=== PATIENT | male | born 1950 | race Caucasian/White ===

== ENCOUNTER 2016-09-19 13:51 | Inpatient (IN) | payer MEDICARE ==
[~2016-09-19] VITALS: Ht 182.9 cm; Wt 98.0 kg
[2016-09-20] MEDS ORDERED: FINA5TAB2 PO (09:21)
[2016-09-20] MEDS ORDERED: DOXY100C PO (09:21)
[2016-09-20] MEDS ORDERED: AVOD0.5C PO (09:21)
[2016-09-20] MEDS ORDERED: LORA1TAB12 PO (09:21)
[2016-09-20] MEDS ORDERED: DOXA1TAB43 PO (09:21)
[2016-09-20] MEDS ORDERED: PANT40TA3 PO (09:21)
[2016-10-09] MEDS ORDERED: INSULIN HUMAN REGULAR 1,000 UNITS/10 ML VIAL SQ PRN (06:00)
[2016-10-09] MEDS ORDERED: SODIUM CHLORID 0.9% 500 ML IV PRN (06:00)
[2016-10-09] MEDS ORDERED: VANCOMYCIN 1000 MG/NS 250 ML (for <70 kg) IV SCH ×2 (06:00)
[2016-10-09] MEDS ORDERED: METOPROLOL TARTRATE 25 MG TAB PO PRN (06:00)
[2016-10-09] MEDS ORDERED: POVIDONE IODINE 5% (ANTISEPSIS KIT) 4 APPLICATIONS EACH NARE PRN (06:00)
[2016-10-09] MEDS ORDERED: CHLORHEXIDINE GLUCONATE 2 % 1 PACK (2 CLOTHS) TOPICAL PRN (06:00)
[2016-10-09] MEDS ORDERED: ceFAZolin 2 GM PREMIX 50 ML IV SCH (06:00)
[2016-10-09] MEDS ORDERED: LACTATED RINGER'S 1000 ML IV PRN (06:00)
[2016-10-09] MEDS ORDERED: POVIDONE IODINE 7.5% SCRUB 118 ML BOTTLE TOPICAL SCH (06:00)
[2016-10-09] MEDS ORDERED: DEXAMETHASONE SOD PHOS 20 MG/5 ML VIAL IV SCH (06:15)
[2016-10-09 06:54] VITALS: BP 119/75; PULSE 72; RESP 20; TEMP 97.7; O2SAT 95
--- NOTE | 2016-10-09 06:57 | HHI.DCPOC ---
Discharge Care Plan Diagnosis: (1) Primary localized osteoarthrosis, lower leg (2) Status post total knee replacement, right Your Health Problems Are: Difficulty with ADL Goals to Promote Your Health * To prevent worsening of your condition and complications * To maintain your health at the optimal level Directions to Meet Your Goals Take your medications as prescribed Follow your dietary instruction Follow activity as directed Keep your appointments as scheduled Take your immunizations and boosters as scheduled If your symptoms worsen call your PCP, if no PCP go to Urgent Care Center or Emergency Room Smoking is Dangerous to Your Health. Avoid second hand smoke Call the 24-hour hour crisis hotline for domestic abuse at Ron Magallanes Oct 09, 2016 06:57
--- NOTE | 2016-10-09 06:58 | HHI.FF ---
Face to Face Verification Diagnosis: (1) Primary localized osteoarthrosis, lower leg (2) Status post total knee replacement, right Physical Therapy Gait training, Transfer training, bed to chair Knee: Total knee Right LE Weight Bearing: WB as tolerated Right LE Range of Motion: Active ROM Nursing Nursing: Francisco teaching, Dressing changes Dressing Changes: Daily dressing change I have seen patient Pasquale Amador on 10/09/16. My clinical findings support the need for the requested home health care services because: Limited ability to care for self High risk of falls I certify that my clinical findings support that this patient is homebound because: Post-op weakness Unsteady gait/balance Ron Magallanes Oct 09, 2016 06:58
[2016-10-09] MEDS ORDERED: CPMMACHINE (06:59)
[2016-10-09] MEDS ORDERED: COMMODE 3-IN-11 MIS (06:59)
[2016-10-09] MEDS ORDERED: WALKER WHEELS/F1 MIS (06:59)
[2016-10-09] MEDS ORDERED: GENTAMICIN SULFATE 80 MG/2 ML VIAL ONE (07:19)
[2016-10-09] MEDS ORDERED: MIDAZOLAM HCL 2 MG/2 ML VIAL ONE (08:09)
[2016-10-09] MEDS ORDERED: ACETAMINOPHEN 1000 MG/100 ML VIAL IV ONE (08:09)
[2016-10-09] MEDS ORDERED: fentaNYL CITRATE 250 MCG/5 ML AMP ONE (08:09)
[2016-10-09] MEDS ORDERED: ROPIVACAINE PERI-ARTICULAR INJECTION. P-ARTICULR SCH ×5 (08:30)
[2016-10-09] MEDS ORDERED: TRANEXAMIC ACID IV SCH ×2 (08:30→12:00)
[2016-10-09] MEDS ORDERED: SODIUM CHLORIDE 0.9% IV SCH ×2 (08:30→12:00)
[2016-10-09] MEDS ORDERED: BUPIVACAINE LIPOSOME PF 1.3% 20 ML VIAL ONE (09:50)
[2016-10-09] MEDS ORDERED: LORazepam 1 MG TAB PO PRN (10:15)
[2016-10-09] MEDS ORDERED: ENOX40P SQ (10:21)
[2016-10-09] MEDS ORDERED: NORC5TAB PO (10:21)
[2016-10-09] MEDS ORDERED: ASPI325T PO (10:21)
--- NOTE | 2016-10-09 10:23 | PD.OP ---
cc: Dagoberto Jackson MD Operative Report Date of Surgery: Oct 09, 2016 Preoperative Diagnosis: Right knee severe osteoarthritis Postoperative Diagnosis: Same Procedure: Right total knee arthroplasty Anesthesia: Gen. and adductor canal block Surgeon: Dagoberto Jackson Tube Bender Hand(s): MARY Juan The surgical procedure was assisted by my Advanced Registered Nurse Practitioner. My AUTOMOTIVE PARTS COUNTER PERSON presence was necessary throughout this case for the manipulation and positioning of the surgical extremity. My AUTOMOTIVE PARTS COUNTER PERSON was assisting me throughout the duration of this procedure. The skill set of an Advance Registered Nurse Practitioner was medically necessary to complete this procedure. During the surgical case, the industrial engineering technician was working at the back table and the Advance Registered Nurse Practitioner was directly assisting me. Operation and Findings: IMPLANTS: DePuy Attune: Patella: size 38. Femur, posterior stabilized size 8. Tibia, rotating platform size 8. Tibial insert, rotating platform, posterior stabilized size 5 mm thickness. ESTIMATED BLOOD LOSS: 150 cc TOURNIQUET TIME: 44 minutes at 250 mmHg pressure. JUSTIFICATION FOR PROCEDURE: The patient has end-stage osteoarthritis to the knee. There is an attached conservative measures pathway form in the chart that describes the nonoperative measures that were undertaken prior to consideration of surgical management. The patient understood the risks and benefits of surgical management. See my office notes for further details PROCEDURE: The patient was brought back to the operative theatre. Adequate anesthesia was obtained. The patient received intravenous vancomycin and Ancef. The lower extremity was prepped and draped in the usual sterile fashion.The leg was exsanguinated, the tourniquet was raised. A standard anterior incision was performed followed by medial parapatellar arthrotomy was performed. End-stage arthritis was identified. Osteotomy of the patella was performed. We drilled holes for the patella. We trialed the patella component. We placed an intramedullary guide into the distal femur. We ultimately resected 14 mm off of the distal femur in 5 degrees of valgus. The remnants of the ACL and PCL were resected. Osteotomy of the proximal tibia was performed, resecting 5 mm off of the medial side. This was done with 3 degrees of posterior slope using an extramedullary guide. The distal end of the guide was placed in the mid aspect of the ankle. The femur was sized, and four chamfer cuts were completed in 3 of external rotation. We then cut the central box in the distal femur to replace the PCL. We resected the remnants of the menisci and removed osteophytes off of the femur and tibia. We then trialed the knee. We punched the tibia for the keel, and then used standard technique to cement in components. Excess cement was removed. We trialed the knee again and the final polyethylene thickness was chosen to provide extension to 0 degrees, and flexion of 140 degrees to gravity. The ligaments were appropriately balanced. Lateral release was necessary to obtain excellent patellofemoral tracking. The tourniquet was released and adequate hemostasis was obtained. An intra- articular injection of a ropivacaine cocktail was injected. The posterior knee was inspected for excess cement, which was removed. The final polyethylene was put into position after thorough irrigation. We then closed deep fascia with a #2 Stratafix followed by skin with 2-0 Vicryl followed by jeanie. Postop plan is to weight-bear as tolerated. DVT prophylaxis will be performed with Adán, TIFFANY santiago, early mobilization, and Lovenox followed by aspirin. Dagoberto Jackson MD Oct 09, 2016 10:23
[2016-10-09] MEDS ORDERED: ACETAMINOPHEN/HYDROcodone 325 MG/5 MG TAB PO PRN (10:30)
[2016-10-09] MEDS ORDERED: MORPHINE SULFATE 4 MG/ML INJ IV PUSH PRN (10:30)
[2016-10-09] MEDS ORDERED: Post-op Orders (for Pharmacy) MISC XX ONE (10:30)
[2016-10-09] MEDS ORDERED: SODIUM CHLORIDE 0.9% FLUSH 5 ML FLUSH IVF PRN (10:30)
[2016-10-09] MEDS ORDERED: ONDANSETRON HCL 4 MG/2 ML VIAL IVP PRN (10:30)
[2016-10-09] MEDS ORDERED: BISACODYL 10 MG SUPP RECTAL PRN (10:30)
[2016-10-09] MEDS ORDERED: diphenhydrAMINE HCL 50 MG/ML VIAL IV PRN (10:30)
[2016-10-09] MEDS ORDERED: MAGNESIUM HYDROXIDE SUSP 30 ML CUP PO PRN (10:30)
[2016-10-09] MEDS ORDERED: NALOXONE HCL 0.4 MG/ML AMP IV PRN (10:30)
[2016-10-09] MEDS ORDERED: ZOLPIDEM TARTRATE 5 MG TAB PO PRN (10:30)
[2016-10-09] MEDS ORDERED: ALUMINUM/MAGNESIUM/SIMETH 30 ML CUP PO PRN (10:30)
[2016-10-09] MEDS ORDERED: DO NOT ADM ANY ANTICOAGULANT DRUGS PRN (10:43)
[2016-10-09] MEDS: SODIUM CHLOR 0.9% 1000 ML INJ 1,000 ML IV SCH ×2 (11:00→21:00)
[2016-10-09] MEDS ORDERED: *morphine SULFATE 8 MG/ML PERIprocedure ONLY ONE ×3 (11:19→11:36)
[2016-10-09] MEDS ORDERED: *HYDROmorphone PF 1 MG VIAL PERIprocedural Use ONLY ONE (11:54)
[2016-10-09] MEDS ORDERED: LACTATED RINGER'S 1000 ML INJ 1,000 ML IV ONE (12:00)
[2016-10-09] MEDS ORDERED: ONDANSETRON HCL 4 MG/2 ML VIAL IV PUSH ONE (12:00)
[2016-10-09] MEDS ORDERED: NEOSTIGMINE 3 MG/3 ML SYR IV ONE (12:00)
[2016-10-09] MEDS ORDERED: PROPOFOL 200 MG/20 ML AMP IV ONE (12:00)
--- NOTE | 2016-10-09 12:11 | RADRPT ---
EXAM DATE/TIME: 10/09/2016 10:50 [facility] COMPARISON: No previous studies available for comparison. INDICATIONS : Post op, right knee replacement. MEDICAL HISTORY : None. SURGICAL HISTORY : None. ENCOUNTER: Initial ACUITY: 1 day PAIN SCORE: 4/10 LOCATION: Right knee FINDINGS: AP and lateral views of the right knee were obtained and demonstrate that the patient is status post arthroplasty. Femoral and tibial components are intact. There are postoperative changes involving the patella. There is soft tissue swelling and gas noted with overlying skin jeanie. CONCLUSION: SPECT of postoperative changes status post arthroplasty. Dimitri Daily MD on October 09, 2016 at 12:08 Board Certified Radiologist. This report was verified electronically.
[2016-10-09] MEDS: ACETAMINOPHEN/HYDROcodone 325 MG/5 MG TAB PO PRN ×2 (13:30→20:15)
[2016-10-09 16:29] VITALS: BP 118/70; PULSE 55; RESP 18; TEMP 95.9; O2SAT 97
--- NOTE | 2016-10-09 18:05 | PD.CONS ---
HPI Service [facility] Consult Requested By Dr. Jackson Reason for Consult Medical management Primary Care Physician Edward Castillo MD Diagnoses: History of Present Illness This a pleasant 66-year-old white male with significant past medical history of osteoarthritis, essential benign tremors. Patient was admitted for elective surgery, he underwent right total knee arthroplasty. Patient tolerated procedure well, he is now sitting up in chair. He has mild tremors noted to upper extremities, these are stable, indicates they are chronic. Denies any chest pain, no shortness of breath. Pain is well-controlled. Hospitalist services are requested for medical management Review of Systems Constitutional: DENIES: Diaphoretic episodes, Fatigue, Fever, Weight gain, Weight loss, Chills, Dizziness, Change in appetite, Night Sweats Endocrine: DENIES: Heat/cold intolerance, Polydipsia, Polyuria, Polyphagia Eyes: DENIES: Blurred vision, Diplopia, Eye inflammation, Eye pain, Vision loss , Photosensitivity, Double Vision Ears, nose, mouth, throat: DENIES: Tinnitus, Hearing loss, Vertigo, Nasal discharge, Oral lesions, Throat pain, Hoarseness, Ear Pain, Running Nose, Epistaxis, Sinus Pain, Toothache, Odynophagia Respiratory: DENIES: Apneas, Cough, Snoring, Wheezing, Hemoptysis, Sputum production, Shortness of breath Cardiovascular: DENIES: Chest pain, Palpitations, Syncope, Dyspnea on Exertion , PND, Lower Extremity Edema, Orthopnea, Claudication Gastrointestinal: DENIES: Abdominal pain, Black stools, Bloody stools, Constipation, Diarrhea, Nausea, Vomiting, Difficulty Swallowing, Anorexia Genitourinary: DENIES: Sexual dysfunction, Urinary frequency, Urinary incontinence, Urgency, Hematuria, Dysuria, Nocturia, Penile Discharge, Testicular Pain, Testicular Swelling Musculoskeletal: COMPLAINS OF: Joint pain, DENIES: Muscle aches, Stiffness, Joint Swelling, Back pain, Neck pain Integumentary: DENIES: Abnormal pigmentation, Nail changes, Pruritus, Rash Hematologic/lymphatic: DENIES: Bruising, Lymphadenopathy Immunologic/allergic: DENIES: Eczema, Urticaria Neurologic: COMPLAINS OF: Tremor, DENIES: Abnormal gait, Headache, Localized weakness, Paresthesias, Seizures, Speech Problems, Poor Balance Psychiatric: DENIES: Anxiety, Confusion, Mood changes, Depression, Hallucinations, Agitation, Suicidal Ideation, Homicidal Ideation, Delusions Past Family Social History Past Medical History Benign essential tremors Osteoarthritis Enlarged prostate GERD Past Surgical History Left knee arthroscopic Umbilical hernia repair with mesh 2 Tonsillectomy Reported Medications Reported Meds & Active Scripts Active Aspirin 325 Mg Tab 325 Mg PO DAILY Start Aspirin after Lovenox is completed. Lovenox Inj (Enoxaparin Sodium) 40 Mg/0.4 Ml Syr 40 Mg SQ DAILY Start Aspirin after Lovenox is completed. [place] (Hydrocodone-Acetaminophen) 5-325 mg Tab 1-2 Tab PO Q4H PRN Reported Lorazepam 1 Mg Tab 1 Mg PO HS PRN Avodart (Dutasteride) 0.5 Mg Cap 0.5 Mg PO EVERY OTHER DAY takes at bedtime Finasteride 5 Mg Tab 5 Mg PO EVERY OTHER DAY Do not crush. takes at bedtime Pantoprazole (Pantoprazole Sodium) 40 Mg Tab 40 Mg PO HS Doxazosin (Doxazosin Mesylate) 8 Mg Tab 8 Mg PO HS Allergies: Coded Allergies: No Known Allergies (Verified , 09/20/16) Active Ordered Medications Inpatient Medications Acetaminophen/ Hydrocodone Bitart 2 tab 2 tab Q4H PRN PO PAIN SCALE 5 TO 10 Last administered on 10/09/16 13:30; Start 10/09/16 at 10:30 Acetaminophen/ Hydrocodone Bitart ([place] 5-325 Mg) 1 tab Q4H PRN PO PAIN LESS THAN 5 ON SCALE; Start 10/09/16 at 10:30 Al Hydrox/Mg Hydrox/Simethicone (Mag-Al Plus Susp Liq) 30 ml Q6H PRN PO INDIGESTION; Start 10/09/16 at 10:30 Bisacodyl (Dulcolax Supp) 10 mg DAILY PRN RECTAL CONSTIPATION; Start 10/09/16 at 10:30 Cefazolin Sodium/ Dextrose 50 ml @ 100 mls/hr SHOCK ABSORPTION FLOOR LAYER IV Last administered on 10/09/16 07:28; Start 10/09/16 at 06:00; Stop 10/10/16 at 05:59 Cefazolin Sodium/ Sodium Chloride (Ancef Inj/NS Inj) 100 ml @ 200 mls/hr Q6H IV Last administered on 10/09/16 13:26; Start 10/09/16 at 14:00; Stop at 02:29 Chlorhexidine Gluconate (Chlorhexidine 2% Cloth) 3 pack SHOCK ABSORPTION FLOOR LAYER PRN TOPICAL SEE LABEL COMMENTS Last administered on 10/09/16t 06:30; Start 10/09/16 at 06:00 ; Stop 10/12/16 at 05:59 Dexamethasone Sodium Phosphate (Decadron Inj) 10 mg ONCE ONCE IV ; Start at 11:00; Stop 10/10/16 at 11:01 Diphenhydramine HCl (Benadryl Inj) 25 mg Q6H PRN IV ITCHING; Start 10/09/16 at 10:30 Docusate Sodium (Colace) 100 mg BID PO ; Start 10/10/16 at 21:00 Doxazosin Mesylate (Cardura) 8 mg HS PO ; Start 10/09/16 at 21:00 Enoxaparin Sodium (Lovenox Inj) 40 mg Q24H SQ ; Start 10/10/16 at 10:00; Stop at 10:01 Finasteride (Proscar) 5 mg EVERY OTHER DAY PO ; Start 10/11/16 at 09:00 Insulin Human Regular (NovoLIN R INJ) See Protocol Table ... SHOCK ABSORPTION FLOOR LAYER PRN SQ SEE PROTOCOL TABLE; Start 10/09/16 at 06:00; Stop 10/12/16 at 05:59 IV Flush (NS Flush) 2 ml UNSCH PRN IVF FLUSH AFTER USING IV ACCESS; Start 10/09 at 10:30 IV Flush 2 ml 2 ml BID IVF ; Start 10/09/16 at 21:00 Lactated Ringer's 1,000 ml @ 30 mls/hr Q24H PRN IV SEE LABEL COMMENTS Last administered on 10/09/16t 06:50; Start 10/09/16 at 06:00; Stop 10/12/16 at 05:59 Lorazepam (Ativan) 1 mg HS PRN PO ANXIETY AND/OR INSOMNIA; Start 10/09/16 at 10 :15 Magnesium Hydroxide (Milk Of Magnesia Liq) 30 ml DAILY PRN PO CONSTIPATION; Start 10/09/16 at 10:30 Metoprolol Tartrate (Lopressor) 25 mg SHOCK ABSORPTION FLOOR LAYER PRN PO SEE LABEL COMMENTS; Start 10/09/16 at 06:00; Stop 10/12/16 at 05:59 Miscellaneous Information ALL NURSING DEPARTME... UNSCH PRN .XX SEE LABEL COMMENTS; Start 10/09/16 at 10:43; Stop 10/10/16 at 10:42 Miscellaneous Information (Post-op Orders (for Pharmacy)) STAT ONCE XX ; Start 10/09/16 at 10:30; Stop 10/09/16 at 10:55; Status DC Morphine Sulfate (Morphine Inj) 2 mg Q3H PRN IV PUSH pain greater than 5; Start 10/09/16 at 10:30 Multivitamins/ Minerals Therapeutic (Theragran M Tab) 1 tab BID PO ; Start 10/10 at 21:00; Stop 12/09/16 at 20:59 Naloxone HCl (Narcan Inj) 0.4 mg UNSCH PRN IV RESPIRATORY RATE LESS THAN 10; Start 10/09/16 at 10:30 Ondansetron HCl (Zofran Inj) 4 mg Q6H PRN IVP NAUSEA OR VOMITING; Start at 10:30 Pantoprazole Sodium 40 mg 40 mg HS PO ; Start 10/09/16 at 21:00 Povidone Iodine (Betadine 5% Antisepsis Kit) 1 applic SHOCK ABSORPTION FLOOR LAYER PRN EACH NARE SEE LABEL COMMENTS Last administered on 10/09/16 07:00; Start 10/09/16 at 06:00 ; Stop 10/12/16 at 05:59 Povidone Iodine 1 applic 1 applic ONCE TOPICAL Last administered on 10/09/16 07:00; Start 10/09/16 at 06:00; Stop 10/12/16 at 05:59 Ropivacaine/ Ketorolac Tromethamine/ Epinephrine HCl/ Clonidine/Sodium Chloride (Naropin 0.5% Pf Inj/Toradol Inj/ Adrenalin (1:1000) Inj/ Duraclon Inj/NS Inj) 100 ml @ 200 mls/hr ONCE P-ARTICULR Last administered on 10/09/16 09:11; Start 10/09/16 at 08:30; Stop 10/09/16 at 14:30; Status DC Sodium Chloride (NS 1000 ml Inj) 1,000 ml @ 100 mls/hr Q10H IV Last administered on 10/09/16 11:00; Start 10/09/16 at 11:00 Sodium Chloride (NS 500 ml Inj) 500 ml @ 30 mls/hr [id number] PRN IV SEE LABEL COMMENTS; Start 10/09/16 at 06:00; Stop 10/12/16 at 05:59 Tranexamic Acid 972 mg/Sodium Chloride 109.72 ml @ 200 mls/ hr ONCE IV Last administered on 10/09/16 08:45; Start 10/09/16 at 08:30; Stop 10/09/16 at 14:30 ; Status DC Tranexamic Acid/ Sodium Chloride (Cyklokapron Inj/ NS Inj) 109.72 ml @ 200 mls / hr UNSCH IV Last administered on 10/09/16 11:39; Start 10/09/16 at 12:00; Stop 10/09/16 at 18:00; Status DC Vancomycin HCl 1000 mg/Sodium Chloride 250 ml @ 250 mls/hr SHOCK ABSORPTION FLOOR LAYER IV Last administered on 10/09/16 07:30; Start 10/09/16 at 06:00; Stop 10/10/16 at 05:59 Zolpidem Tartrate (Ambien) 5 mg HS PRN PO SLEEP; Start 10/09/16 at 10:30 Family History Reviewed, noncontributory Social History Patient is , retired but does work some part-time No smoking, alcohol, no substance abuse Physical Exam Vital Signs Vital Signs Date Time Temp Pulse Resp B/P Pulse Ox O2 Delivery O2 Flow Rate FiO2 10/09/16 16:29 95.9 55 18 118/70 97 10/09/16 15:00 52 16 114/61 96 Room Air 10/09/16 14:00 58 16 120/64 98 Room Air 10/09/16 13:00 49 16 114/62 94 Nasal Cannula 1 10/09/16 12:45 62 16 117/60 94 Nasal Cannula 1 10/09/16 12:30 58 16 119/58 95 Nasal Cannula 1 10/09/16 12:15 71 16 112/56 92 Nasal Cannula 1 10/09/16 12:00 70 16 124/61 93 Nasal Cannula 1 10/09/16 11:45 66 16 123/61 95 Nasal Cannula 1 10/09/16 11:41 15 10/09/16 11:30 68 16 128/69 96 Nasal Cannula 1 10/09/16 11:15 70 15 122/68 99 Nasal Cannula 3 10/09/16 11:12 16 10/09/16 11:02 16 10/09/16 11:00 80 16 132/78 98 Nasal Cannula 3 10/09/16 10:45 85 15 134/73 96 Nasal Cannula 3 10/09/16 10:40 97.8 89 16 129/72 93 Nasal Cannula 3 10/09/16 06:54 97.7 72 20 119/75 95 Physical Exam GENERAL: This is a well-nourished, well-developed patient, in no apparent distress. SKIN: No rashes, ecchymoses or lesions. Cool and dry. HEAD: Atraumatic. Normocephalic. No temporal or scalp tenderness. EYES: Pupils equal round and reactive. Extraocular motions intact. No scleral icterus. No injection or drainage. ENT: Nose without bleeding, purulent drainage or septal hematoma. Throat without erythema, tonsillar hypertrophy or exudate. Uvula midline. Airway patent. NECK: Trachea midline. No JVD or lymphadenopathy. Supple, nontender, no meningeal signs. CARDIOVASCULAR: Regular rate and rhythm without murmurs, gallops, or rubs. RESPIRATORY: Clear to auscultation. Breath sounds equal bilaterally. No wheezes , rales, or rhonchi. GASTROINTESTINAL: Abdomen soft, non-tender, nondistended. No hepato-splenomegaly , or palpable masses. No guarding. MUSCULOSKELETAL: Right knee with bulky dressing in place, intact sensation to the right foot. Bilateral pedal pulses 2+ bilaterally. NEUROLOGICAL: Awake and alert. Cranial nerves II through XII intact. Mild resting tremors noted to upper extremities. Motor and sensory grossly within normal limits. Five out of 5 muscle strength in all muscle groups. Normal speech. Laboratory Laboratory Tests Test 10/09/16 06:43 Blood Type AB POSITIVE Antibody Screen NEGATIVE Blood Bank Comment Imaging Last Impressions Knee X-Ray 10/09/16 1016 Signed Impressions: Service Date/Time: Sunday, October 09, 2016 10:50 - CONCLUSION: SPECT of postoperative changes status post arthroplasty. Dimitri Daily MD A/P Diagnosis: (1) Primary localized osteoarthrosis, lower leg (2) Status post total knee replacement, right (3) Benign essential tremor (4) GERD (gastroesophageal reflux disease) (5) Enlarged prostate Assessment and Plan Thank you for this consultation, we will assist with medical management 66-year-old male with history of osteo-arthritis, status post right total knee replacement -Continue with postoperative orthopedic care Pain management Postop antibiotics Lovenox will be used for DVT prophylaxis Bowel regimen -Physical therapy Enlarged prostate Continue with home medications Benign essential tremors Continue to monitor, they do not appear to interfere with patient's ability to participate in therapy. GERD Continue proton Continue with Lovenox for DVT prophylaxis CBC and BMP in the morning Plan of care discussed with the patient, attending and registered nurse. Further management of the patient will be dependent on the hospital course This patient was seen by myself and Dr. Thibodeaux, this consultation is written on his behalf Problem Qualifiers (1) Primary localized osteoarthrosis, lower leg: Qualified Code: M17.11 - Primary localized osteoarthrosis of right lower leg (2) GERD (gastroesophageal reflux disease): Qualified Code: K21.9 - Gastroesophageal reflux disease, esophagitis presence not specified Marizol Garcia Oct 09, 2016 18:04
[2016-10-09 19:25] VITALS: O2SAT 97
[2016-10-09] MEDS: SODIUM CHLORIDE 0.9% FLUSH 5 ML FLUSH IVF SCH (20:14)
[2016-10-09 20:15] VITALS: BP 118/73; PULSE 68; RESP 17; TEMP 96; O2SAT 95
[2016-10-09] MEDS ORDERED: PANTOPRAZOLE SOD 40 MG DELAYED RELEASE TAB PO SCH (21:00)
[2016-10-09] MEDS ORDERED: DOXAZOSIN MESYLATE 4 MG TAB PO SCH (21:00)
[2016-10-10] MEDS: ACETAMINOPHEN/HYDROcodone 325 MG/5 MG TAB PO PRN ×4 (00:20→12:50)
[2016-10-10 00:45] VITALS: BP 105/61; PULSE 64; RESP 18; TEMP 97.2; O2SAT 94
[2016-10-10 04:00] VITALS: BP 100/65; PULSE 56; RESP 17; TEMP 97.2; O2SAT 96
[2016-10-10] MEDS: SODIUM CHLOR 0.9% 1000 ML INJ 1,000 ML IV SCH (07:00)
[2016-10-10 07:33] VITALS: BP 105/55; PULSE 60; RESP 18; TEMP 96.3; O2SAT 94
[2016-10-10 07:43] LABS: HEMATOCRIT 35.2 % (39.0-51.0); MEAN CELL VOLUME 90.3 FL (80.0-100.0); MEAN CORPUSCULAR HEMOGLOBIN 30.7 PG (27.0-34.0); PLATELET COUNT 213 TH/MM3 (150-450); RED BLOOD COUNT 3.89 MIL/MM3 (4.50-5.90); RED CELL DISTRIBUTION WIDTH 13.7 % (11.6-17.2); REVIEW FLAG FINAL; WHITE BLOOD COUNT 11.6 TH/MM3 (4.0-11.0)
[2016-10-10 08:15] LABS: BICARBONATE 26.5 MEQ/L (21.0-32.0); POTASSIUM 3.9 MEQ/L (3.5-5.1)
[2016-10-10] MEDS: SODIUM CHLORIDE 0.9% FLUSH 5 ML FLUSH IVF SCH (09:00)
[2016-10-10] MEDS ORDERED: ENOXAPARIN SODIUM 40 MG/0.4 ML SYRINGE SQ SCH (10:00)
[2016-10-10] MEDS ORDERED: DEXAMETHASONE SOD PHOS 20 MG/5 ML VIAL IV ONE (11:00)
[2016-10-10 11:28] VITALS: BP 117/56; PULSE 71; RESP 18; TEMP 95.7; O2SAT 96
--- NOTE | 2016-10-10 11:36 | PD.ORT.PN ---
Subjective Post Op Day #: 1 Subjective Remarks Patient is OOB in chair with mild pain to the right knee and thigh. Patient is voiding and ambulatory. Objective Vitals Vital Signs Date Time Temp Pulse Resp B/P Pulse Ox O2 Delivery O2 Flow Rate FiO2 10/10/16 07:35 Room Air 10/10/16 07:33 96.3 60 18 105/55 94 10/10/16 04:00 97.2 56 17 100/65 96 10/10/16 00:45 97.2 64 18 105/61 94 10/09/16 20:15 96.0 68 17 118/73 95 10/09/16 19:25 97 21 10/09/16 16:29 95.9 55 18 118/70 97 10/09/16 15:00 52 16 114/61 96 Room Air 10/09/16 14:00 58 16 120/64 98 Room Air 10/09/16 13:00 49 16 114/62 94 Nasal Cannula 1 10/09/16 12:45 62 16 117/60 94 Nasal Cannula 1 10/09/16 12:30 58 16 119/58 95 Nasal Cannula 1 10/09/16 12:15 71 16 112/56 92 Nasal Cannula 1 10/09/16 12:00 70 16 124/61 93 Nasal Cannula 1 10/09/16 11:45 66 16 123/61 95 Nasal Cannula 1 10/09/16 11:41 15 10/09/16 11:30 68 16 128/69 96 Nasal Cannula 1 I/O 10/09/16 10/09/16 10/09/16 10/10/16 10/10/16 10/10/16 07:00 15:00 23:00 07:00 15:00 23:00 Intake Total 240 ml 240 ml Output Total 250 ml 100 ml Balance -10 ml 140 ml Intake Oral 240 ml 240 ml Output Urine Total 250 ml 100 ml # Bowel Movements 0 0 Result Diagram: 10/10/16 0641 10/10/16 0641 Procedures Right TKA Objective Remarks Dressing changed today with no drainage. Incision is well approximated with surgical clips intact. No redness or s/s of infection. EHL/TA/G intact. 2+ pedal pulse. No calf swelling or tenderness. + SILT. Assessment & Plan Ortho Post Op Day #: 1 Problem List: Assessment and Plan POD #1: Right TKA 1. Lovenox followed by ASA for DVT prophylaxis 2. WBAT RLE 3. Ice to the right knee PRN 4. Stable for discharge home with home health today 5. F/U in the office with Dr. Jackson or MARY Newell as scheduled. Ron Magallanes Oct 10, 2016 11:36
[2016-10-10 14:19] VITALS: O2SAT 96
[2016-10-10] MEDS ORDERED: DOCUSATE SODIUM 100 MG CAP PO SCH (21:00)
[2016-10-10] MEDS ORDERED: MULTIVITAMINS/MINERALS THERAPEUTIC TAB PO SCH (21:00)
[2016-10-11] MEDS ORDERED: FINASTERIDE 5 MG TAB PO SCH (09:00)
[2016-10-11] MEDS ORDERED: NON-FORMULARY DRUG (Dutasteride (Avodart) 0.5 MG) PO SCH (09:00)
--- NOTE | 2016-10-12 22:03 | HHI.DS ---
Discharge Summary Admission Date Oct 09, 2016 at 05:43 Discharge Date: Oct 10, 2016 Admitting Diagnosis Primary localized OA of the lower extremity Status post total knee replacement, right Diagnosis: (1) Primary localized osteoarthrosis, lower leg Diagnosis: Principal (2) Status post total knee replacement, right Diagnosis: Principal Procedures Right TKA Brief History This is a 66 year old male patient with severe OA of the right knee CBC/BMP: 10/10/16 0641 10/10/16 0641 Significant Findings Laboratory Tests Test 10/10/16 06:41 White Blood Count 11.6 TH/MM3 (4.0-11.0) Red Blood Count 3.89 MIL/MM3 (4.50-5.90) Hemoglobin 12.0 GM/DL (13.0-17.0) Hematocrit 35.2 % (39.0-51.0) Blood Urea Nitrogen 19 MG/DL (7-18) Estimat Glomerular Filtration 70 ML/MIN (>89) Rate Random Glucose 118 MG/DL (74-106) Calcium Level 7.5 MG/DL (8.5-10.1) PE at Discharge Dressing changed today with no drainage. Incision is well approximated with surgical clips intact. No redness or s/s of infection. EHL/TA/G intact. 2+ pedal pulse. No calf swelling or tenderness. + SILT. Hospital Course The patient was admitted to the hospital for severe OA of the right knee to have a right TKA. The patient's surgery went well without complication. The patent is WBAT. The patient is on a regular diet. The patient was placed on Lovenox followed by ASA post op for DVT prophylaxis. The patient was discharged home with home health and will f/u in the office as previously scheduled with Dr. Jackson or MARY Newell. Pt Condition on Discharge: Stable Discharge Disposition: Disch w/ Home Health Serv Discharge Instructions Diet Instructions: As Tolerated, No Restrictions Activities You Can Perform: Weight Bearing as Rani Activities to Avoid: Strenuous Activity Follow up Referrals: Orthopedics with Dagoberto Jackson MD SNF/[facility]/ with NURSE SYSTEMS INTEGRATION ADVISOR - [phone] New Medications: Aspirin (Aspirin) 325 Mg Tab 325 MG PO DAILY Start Aspirin after Lovenox is completed. Prevent Blood Clot # 30 Ref 0 TAB Commode 3-in-1 (Commode 3-in-1) 1 Mis Mis 1 EA .ROUTE DIRECTED #1 Ref 0 EA CPM-Continuous Passive Motion Machine (CPM-Continuous Passive Motion Machine) 1 Ea Device 1 EA .ROUTE DIRECTED #1 Ref 0 EA Enoxaparin Inj (Lovenox Inj) 40 Mg/0.4 Ml Syr 40 MG SQ DAILY Start Aspirin after Lovenox is completed. Blood Clot Prevention # 10 Ref 0 SYRINGE Hydrocodone-Acetaminophen ([place]) 5-325 mg Tab 1-2 TAB PO Q4H PRN PAIN #60 Ref 0 TAB Walker with Front Wheels (Walker with Front Wheels) 1 Mis Mis 1 EA .ROUTE DIRECTED #1 Ref 0 EA Continued Medications: Doxazosin (Doxazosin) 8 Mg Tab 8 MG PO HS #30 Ref 0 TAB Dutasteride (Avodart) 0.5 Mg Cap 0.5 MG PO EVERY OTHER DAY takes at bedtime Manage Prostate Problems #30 Ref 0 CAP Finasteride (Finasteride) 5 Mg Tab 5 MG PO EVERY OTHER DAY Do not crush. takes at bedtime Manage Prostate Problems #30 Ref 0 TAB Lorazepam (Lorazepam) 1 Mg Tab 1 MG PO HS PRN ANXIETY AND/OR INSOMNIA Ref 0 TAB Pantoprazole (Pantoprazole) 40 Mg Tab 40 MG PO HS Reflux #30 Ref 0 TAB Ron Magallanes Oct 12, 2016 22:03
== END 2016-10-10 16:33 | disposition home health service (06) | DRG 470 ==
LOC: HSDI 10-09 05:43 → EDSTATUS 10-09 08:30 → N06B 10-09 16:19
PROVIDERS: ADMIT Orthopaedic Surgery; ATTEND Orthopaedic Surgery
PROC: 3E0T3CZ (ICD-10-PCS; 2016-10-09)
PROC: 0SRC0J9 Replacement of Right Knee Joint with Synthetic Substitute, Cemented, Open Approach (ICD-10-PCS; principal; 2016-10-09 08:13)
DX: M17.11 Unilateral primary osteoarthritis, right knee (principal); G25.0 Essential tremor; K21.0 Gastro-esophageal reflux disease with esophagitis; N40.0 Benign prostatic hyperplasia without lower urinary tract symptoms
CPT/HCPCS: 73560; 80048; 85027; 86850; 86900; 86901; 94150; C1776; C9290; J0131; J0171; J0690; J0735; J1100; J1170; J1580; J1650; J1885; J2250; J2270; J2405; J2710; J2795; J3010; J3370; J7030; J7050; J7120; L1830

== ENCOUNTER → 2016-09-20 | Outpatient (CLI) | payer MEDICARE ==
[~2016-09-20] MED LIST: AVOD0.5C PO; CADU10TA2 PO; CARD8TAB6 PO; DOXA1TAB43 PO; DOXY100C PO; FINA5TAB2 PO; LORA1TAB12 PO; LORT5TAB PO; PANT40TA3 PO
[2016-09-20 10:14] LABS: APTT (PATIENT) 26.1 SEC (24.3-30.1); AUTOMATED NEUTROPHIL # 3.3 TH/MM3 (1.8-7.7); BASOPHIL % 0.5 % (0.0-2.0); EOSINOPHIL # 0.1 TH/MM3 (0-0.4); EOSINOPHIL % 1.5 % (0.0-4.0); HEMATOCRIT 43.9 % (39.0-51.0); HEMO FLAGS DIFF FINAL; LYMPH % 23.8 % (9.0-44.0); LYMPHOCYTE # 1.2 TH/MM3 (1.0-4.8); MEAN CELL VOLUME 90.4 FL (80.0-100.0); MEAN CORPUSCULAR HEMOGLOBIN 30.5 PG (27.0-34.0); MEAN CORPUSCULAR HGB CONC 33.7 % (32.0-36.0); MONO % 8.9 % (0.0-8.0); NEUT % 65.3 % (16.0-70.0); PLATELET COUNT 237 TH/MM3 (150-450); PROTHROMBIN TIME - PATIENT 10.9 SEC (9.8-11.6); RED BLOOD COUNT 4.86 MIL/MM3 (4.50-5.90); RED CELL DISTRIBUTION WIDTH 13.6 % (11.6-17.2); WHITE BLOOD COUNT 5.1 TH/MM3 (4.0-11.0)
[2016-09-20 10:15] LABS: BLOOD, URINE NEG (NEG); GLUCOSE,URINE NEG (NEG); KETONE, URINE NEG (NEG); MUCUS URINE FEW /lpf (OCC); NITRITE,URINE NEG (NEG); PH, URINE 5.5 (5.0-8.5); URINE COLOR YELLOW (YELLW/STRAW)
[2016-09-20 10:16] LABS: COMMENT (UR) CULT NOT INDICATED; CULTURE IF INDICATED CULT NOT INDICATED
[2016-09-20 10:27] LABS: ANION GAP 5 MEQ/L (5-15); AST (GOT) 13 U/L (15-37); BICARBONATE 29.7 MEQ/L (21.0-32.0); BLOOD UREA NITROGEN 13 MG/DL (7-18); CHLORIDE 109 MEQ/L (98-107); GLOMERULAR FILTRATION RATE 72 ML/MIN (>89); GLUCOSE,FASTING 105 MG/DL (74-99); POTASSIUM 4.1 MEQ/L (3.5-5.1); SODIUM (NA) 144 MEQ/L (136-145)
[2016-09-20 10:35] LABS: ALKALINE PHOSPHATASE 34 U/L (45-117); ALT (GPT) 19 U/L (12-78); TOTAL BILIRUBIN ADULT 0.4 MG/DL (0.2-1.0)
[2016-09-20 10:37] LABS: WESTERGREN SEDIMENTATION RATE 1 mm/hr (0-20)
--- NOTE | 2016-09-20 12:11 | RADRPT ---
EXAM DATE/TIME: 09/20/2016 11:24 [facility] COMPARISON: No previous studies available for comparison. INDICATIONS : Evaluate for pneumonia, pneumothorax or communicable disease. MEDICAL HISTORY : None. SURGICAL HISTORY : None. ENCOUNTER: Initial ACUITY: 1 day PAIN SCORE: 0/10 LOCATION: Bilateral chest FINDINGS: The lungs are clear without infiltrate, nodule, or mass except for linear scar above the costophrenic angles. There is no appreciable pleural effusion for technique. Heart and mediastinum are unremark able.CONCLUSION: No acute cardiopulmonary disease. Liliana Cardona MD on September 20, 2016 at 12:09 Board Certified Radiologist. This report was verified electronically.
--- NOTE | 2016-09-20 13:17 | EKG ---
Date Performed: 09/20/2016 Time Performed: 09:12:10 PTAGE: 66 years EKG: SINUS BRADYCARDIA BORDERLINE ECG No significant change from prior electrocardiogram. PREVIOUS TRACING : 07/10/2008 11.07 DOCTOR: Stan Baird Interpretating Date/Time 09/20/2016 13:16:14
== END ==
LOC: CPRE 08:38
PROVIDERS: ATTEND Orthopaedic Surgery Sports Medicine
DX: Z01.812 Encounter for preprocedural laboratory examination (principal); Z01.811 Encounter for preprocedural respiratory examination; Z01.810 Encounter for preprocedural cardiovascular examination; M17.11 Unilateral primary osteoarthritis, right knee; M25.50 Pain in unspecified joint; R94.31 Abnormal electrocardiogram [ECG] [EKG]
CPT/HCPCS: 36415; 71020; 80053; 81001; 85025; 85610; 85652; 85730; 93005

== ENCOUNTER → 2017-03-07 | Outpatient (CLI) | payer MEDICARE ==
[~2017-03-07] MED LIST changes: +ASPI-183 PO; -CADU10TA2 PO; -CARD8TAB6 PO; +COMMODE 3-IN-11 MIS; +CPMMACHINE; -DOXY100C PO; +ENOX40P SQ; -LORT5TAB PO; +NORC5TAB PO; +WALKER WHEELS/F1 MIS
[2017-03-07 11:47] LABS: AUTOMATED NEUTROPHIL # 3.8 TH/MM3 (1.8-7.7); BASOPHIL % 0.5 % (0.0-2.0); EOSINOPHIL # 0.1 TH/MM3 (0-0.4); EOSINOPHIL % 1.8 % (0.0-4.0); LYMPH % 25.7 % (9.0-44.0); LYMPHOCYTE # 1.5 TH/MM3 (1.0-4.8); MEAN CELL VOLUME 89.9 FL (80.0-100.0); MEAN CORPUSCULAR HEMOGLOBIN 30.6 PG (27.0-34.0); MEAN PLATELET VOLUME 8.4 FL (7.0-11.0); MONO % 8.6 % (0.0-8.0); MONOCYTE # 0.5 TH/MM3 (0-0.9); NEUT % 63.4 % (16.0-70.0); PLATELET COUNT 257 TH/MM3 (150-450); RED BLOOD COUNT 4.89 MIL/MM3 (4.50-5.90); RED CELL DISTRIBUTION WIDTH 13.7 % (11.6-17.2)
[2017-03-07 11:55] LABS: PROTHROMBIN TIME - PATIENT 10.5 SEC (9.8-11.6)
[2017-03-07 11:59] LABS: BILIRUBIN, URINE NEG (NEG); BLOOD, URINE NEG (NEG); GLUCOSE,URINE NEG (NEG); KETONE, URINE NEG (NEG); MUCUS URINE FEW /lpf (OCC); NITRITE,URINE NEG (NEG); PH, URINE 5.5 (5.0-8.5); SQUAMOUS EPITHELIAL CELL URINE <1 /hpf (0-5); URINE COLOR YELLOW (YELLW/STRAW); URINE LEUKOCYTE ESTERASE TRACE (NEG)
[2017-03-07 12:18] LABS: WESTERGREN SEDIMENTATION RATE 2 mm/hr (0-20)
[2017-03-07 12:22] LABS: ALBUMIN 3.7 GM/DL (3.4-5.0); ALT (GPT) 18 U/L (12-78); AST (GOT) 8 U/L (15-37); BICARBONATE 28.9 MEQ/L (21.0-32.0); BLOOD UREA NITROGEN 17 MG/DL (7-18); CALCIUM 8.8 MG/DL (8.5-10.1); CHLORIDE 105 MEQ/L (98-107); CREATININE 0.99 MG/DL (0.60-1.30); GLOMERULAR FILTRATION RATE 75 ML/MIN (>89); GLUCOSE,FASTING 95 MG/DL (74-99); SODIUM (NA) 138 MEQ/L (136-145)
[2017-03-07 12:25] LABS: ALKALINE PHOSPHATASE 42 U/L (45-117); TOTAL BILIRUBIN ADULT 0.7 MG/DL (0.2-1.0); TOTAL PROTEIN 7.2 GM/DL (6.4-8.2)
--- NOTE | 2017-03-07 12:29 | RADRPT ---
EXAM DATE/TIME: 03/07/2017 12:06 [place] COMPARISON: CHEST PA & LAT, September 20, 2016, 11:24. INDICATIONS : Evaluate for pneumonia, pneumothorax, or communicable disease. Pre-operative for left knee replacemen t on 03/19/17. MEDICAL HISTORY : None. SURGICAL HISTORY : None. ENCOUNTER: Initial ACUITY: 1 day PAIN SCORE: 0/10 LOCATION: Bilateral chest FINDINGS: PA and lateral views of the chest demonstrate the lungs to be symmetrically aerated without evidence of mass, infiltrate or effusion. Stable linear scarring at the bases. The cardiomediastinal contours are unremarkable. Osseous structures are intact. CONCLUSION: 1. No active disease. Stable linear scarring at the lung bases. Moderate degenerative changes in the thoracic spine. Elbert Page MD on March 07, 2017 at 12:25 Board Certified Radiologist. This report was verified electronically.
--- NOTE | 2017-03-07 16:41 | EKG ---
Date Performed: 03/07/2017 Time Performed: 11:19:34 PTAGE: 67 years EKG: Sinus rhythm . ST junctional depression is nonspecific Borderline ECG PREVIOUS TRACING : 09/20/2016 09.12 Since previous tracing, no significant change noted DOCTOR: Justin Cornejo Interpretating Date/Time 03/07/2017 16:40:41
== END ==
LOC: CPRE 10:48
PROVIDERS: ATTEND Orthopaedic Surgery
DX: Z01.810 Encounter for preprocedural cardiovascular examination (principal); Z01.811 Encounter for preprocedural respiratory examination; Z01.812 Encounter for preprocedural laboratory examination; M79.609 Pain in unspecified limb; M25.50 Pain in unspecified joint; Z96.60 Presence of unspecified orthopedic joint implant
CPT/HCPCS: 36415; 71046; 80053; 81001; 85025; 85610; 85652; 85730; 93005

== ENCOUNTER 2017-03-19 07:51 | Inpatient (IN) | payer MEDICARE ==
[2017-03-19] MEDS: POVIDONE IODINE 7.5% SCRUB 118 ML BOTTLE TOPICAL (09:00)
[2017-03-19] MEDS: POVIDONE IODINE 5% (ANTISEPSIS KIT) 4 APPLICATIONS EACH NARE (09:15)
[2017-03-19] MEDS: LACTATED RINGER'S 1000 ML IV (09:15)
[2017-03-19] MEDS ORDERED: ACETAMINOPHEN 1000 MG/100 ML 100 ML IV (09:26)
[2017-03-19] MEDS ORDERED: BUPIVACAINE LIPOSOME PF 1.3% 20 ML VIAL (09:26)
[2017-03-19] MEDS ORDERED: METOPROLOL TARTRATE 25 MG TAB PO (09:45)
[2017-03-19] MEDS ORDERED: SODIUM CHLORID 0.9% 500 ML IV (09:45)
[2017-03-19] MEDS ORDERED: INSULIN HUMAN REGULAR 1,000 UNITS/10 ML VIAL SQ (09:45)
[2017-03-19] MEDS ORDERED: CHLORHEXIDINE GLUCONATE 2 % 1 PACK (2 CLOTHS) TOPICAL (09:45)
[2017-03-19] MEDS: DEXAMETHASONE SOD PHOS 20 MG/5 ML VIAL IV (09:50)
[2017-03-19] MEDS: ceFAZolin 2 GM PREMIX 50 ML IV (09:55)
[2017-03-19] MEDS: VANCOMYCIN 1000 MG/NS 250 ML (for <70 kg) IV (09:59)
[2017-03-19] MEDS: TRANEXAMIC ACID IV ×2 (10:18→13:15)
[2017-03-19] MEDS: SODIUM CHLORIDE 0.9% IV ×2 (10:18→13:15)
[2017-03-19] MEDS: GENTAMICIN SULFATE 80 MG/2 ML VIAL (10:52)
[2017-03-19] MEDS: ROPIVACAINE PERI-ARTICULAR INJECTION. P-ARTICULR (10:52)
[2017-03-19] MEDS ORDERED: LACTATED RINGER'S 1000 ML INJ 1,000 ML IV (12:00)
[2017-03-19] MEDS ORDERED: ePHEDrine/NS 25 MG/5 ML SYRINGE IV (12:00)
[2017-03-19] MEDS ORDERED: ONDANSETRON HCL 4 MG/2 ML VIAL IV (12:00)
[2017-03-19] MEDS ORDERED: STERILE WATER FOR INJECTION 20 ML VIAL IV (12:00)
[2017-03-19] MEDS ORDERED: PHENYLEPH/NS 1000 MCG/10 ML SYR IV (12:00)
[2017-03-19] MEDS ORDERED: PROPOFOL 200 MG/20 ML AMP IV (12:00)
[2017-03-19] MEDS ORDERED: ROCURONIUM INJ 50 MG/5 ML SYRINGE IV PUSH (12:00)
[2017-03-19] MEDS ORDERED: GLYCOPYRROLATE 1 MG/5 ML SYRINGE IV PUSH (12:00)
[2017-03-19] MEDS ORDERED: NEOSTIGMINE 5 MG/5 ML SYRINGE IV PUSH (12:00)
[2017-03-19] MEDS ORDERED: ZOLPIDEM TARTRATE 5 MG TAB PO (12:15)
[2017-03-19] MEDS ORDERED: Post-op Orders (for Pharmacy) XX (12:15)
[2017-03-19] MEDS ORDERED: LORazepam 1 MG TAB PO (12:15)
[2017-03-19] MEDS ORDERED: diphenhydrAMINE HCL 50 MG/ML VIAL IV PUSH (12:15)
[2017-03-19] MEDS ORDERED: ALUMINUM/MAGNESIUM/SIMETH 30 ML CUP PO (12:15)
[2017-03-19] MEDS ORDERED: ONDANSETRON HCL 4 MG/2 ML VIAL IVP (12:15)
[2017-03-19] MEDS ORDERED: BISACODYL 10 MG SUPP RECTAL (12:15)
[2017-03-19] MEDS ORDERED: NALOXONE HCL 0.4 MG/ML AMP IV PUSH (12:15)
[2017-03-19] MEDS: *morphine SULFATE 10 MG/ML PERIprocedure ONLY ×2 (12:41→12:54)
[2017-03-19] MEDS ORDERED: MIDAZOLAM HCL 2 MG/2 ML VIAL (12:41)
[2017-03-19] MEDS ORDERED: MORPHINE SULFATE 4 MG/ML INJ (12:41)
[2017-03-19] MEDS: SODIUM CHLOR 0.9% 1000 ML INJ 1,000 ML IV ×2 (13:00→23:58)
[2017-03-19] MEDS: HYDROmorphone HCL PF 2 MG/ML VIAL (13:08)
[2017-03-19] MEDS ORDERED: DO NOT ADM ANY ANTICOAGULANT DRUGS (13:30)
[2017-03-19] MEDS: ACETAMINOPHEN/HYDROcodone 325 MG/5 MG TAB PO ×2 (16:27→20:44)
[2017-03-19] MEDS: MORPHINE SULFATE 2 MG/ML INJ IV PUSH (18:28)
[2017-03-19] MEDS: PANTOPRAZOLE SOD 40 MG DELAYED RELEASE TAB PO (20:44)
[2017-03-19] MEDS: DOXAZOSIN MESYLATE 4 MG TAB PO (20:44)
[2017-03-20] MEDS: ACETAMINOPHEN/HYDROcodone 325 MG/5 MG TAB PO ×4 (00:37→12:00)
[2017-03-20 06:25] LABS: HEMATOCRIT 36.1 % (39.0-51.0); HEMOGLOBIN 12.5 GM/DL (13.0-17.0); MEAN CELL VOLUME 89.2 FL (80.0-100.0); MEAN CORPUSCULAR HEMOGLOBIN 30.9 PG (27.0-34.0); MEAN CORPUSCULAR HGB CONC 34.7 % (32.0-36.0); MEAN PLATELET VOLUME 7.7 FL (7.0-11.0); PLATELET COUNT 242 TH/MM3 (150-450); RED BLOOD COUNT 4.05 MIL/MM3 (4.50-5.90); RED CELL DISTRIBUTION WIDTH 13.4 % (11.6-17.2); REVIEW FLAG FINAL; WHITE BLOOD COUNT 11.7 TH/MM3 (4.0-11.0)
[2017-03-20] MEDS: DEXAMETHASONE SOD PHOS 20 MG/5 ML VIAL IV (08:08)
[2017-03-20] MEDS: SODIUM CHLOR 0.9% 1000 ML INJ 1,000 ML IV ×2 (08:14→09:19)
[2017-03-20] MEDS: MAGNESIUM HYDROXIDE SUSP 30 ML CUP PO (08:20)
[2017-03-20] MEDS: ENOXAPARIN SODIUM 40 MG/0.4 ML SYRINGE SQ (12:02)
[2017-03-20] MEDS ORDERED: DOCUSATE SODIUM 100 MG CAP PO (21:00)
[2017-03-20] MEDS ORDERED: MULTIVITAMINS/MINERALS THERAPEUTIC TAB PO (21:00)
[2017-03-21] MEDS ORDERED: NON-FORMULARY DRUG (Dutasteride (Avodart) 0.5 MG) PO (09:00)
[2017-03-21] MEDS ORDERED: FINASTERIDE 5 MG TAB PO (09:00)
== END 2017-03-20 12:27 | disposition home health service (06) | DRG 470 ==
LOC: HSDI 07:51 → N06B 15:03
PROC: 0SRD0J9 Replacement of Left Knee Joint with Synthetic Substitute, Cemented, Open Approach (ICD-10-PCS; principal; 2017-03-19 10:01)
PROC: 3E0T3BZ Introduction of Anesthetic Agent into Peripheral Nerves and Plexi, Percutaneous Approach (ICD-10-PCS; 2017-03-19 10:01)
DX: M17.12 Unilateral primary osteoarthritis, left knee (principal); K21.9 Gastro-esophageal reflux disease without esophagitis; Z96.651 Presence of right artificial knee joint
CPT/HCPCS: 73560; 85027; 86850; 86900; 86901; 94150; 97110-GP; 97116-GP; 97163-GP; 97166-GO